=== PATIENT | male | born 1970 | race Caucasian/White ===

== ENCOUNTER 2024-02-05 13:54 | Inpatient (IN) | payer OTHER, SELFPAY ==
[2024-02-05 15:47] VITALS: BMI 25.4
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
--- NOTE | 2024-02-05 16:25 | P.CONHOSP_ITS ---
History of Present Illness Data of Consult Service Date: 02/05/24 Primary Care Provider: Can Ladd MD HPI Reason for consult: Admission H&P Pt is a 53-year-old male with a PMH significant for?hepatitis-C, anxiety, depression, and schizophrenia who is admitted to psychiatry unit for decompensation with paranoid delusions, command auditory hallucinations, and bizarre behavior in the community. Medical consult for admission H&P. ?Patient seen and evaluated at bedside where he is resting comfortably in bed. Patient denies any significant PMH or any acute medical complaints. No nausea, vomiting, abdominal pain. Denies fever, chills. No shortness a breath or difficulty breathing. Denies chest pain/pressure, palpitations. Denies headache or acute vision changes. Patient's only complaints are about ?the voices? that he is currently hearing. Denies any SI or HI. Review of Systems Review of Systems: Patient has no acute medical complaints at this time [facility] Medical History (Updated 02/05/24 @ 17:21 by GONZALES Christianson) Hepatitis C Social History Household Members: Significant Other and Children Household Members Other:: 5 Housing: House Do you presently have visiting nurse or other home services: Yes (Kaleigh White) Patient Tobacco Use Status: Current everyday Tobacco user Tobacco use type: Cigarette Cigarette Packs Per Day: 1.5 Cigarettes Per Day: 30.0 Years Smoked: 38 Smoked in Last 30 Days: Yes e-Cigarette/Vaping Use: Never Used Patient Interested in Nicotine Replacement: Yes Patient Given Instructions on How to Stop Smoking: Yes Date Education Initiated: 02/05/24 Second Hand Smoke Exposure: No Use of substances other than those prescribed or required for medical reasons: Yes Substance Use Type: Marijuana and Caffiene Substance Use Type Other:: 3 blunts daily, 2-3 c coffee Substance Use Frequency: Daily Last Used Substance: Days (ago) Last Used Substance Other:: 1 week Currently Displaying Signs/Symptoms of Drug Intoxication Withdrawal: No Any prior treatment program specific to substance use: No Have you been hit, kicked, punched, or otherwise hurt by someone within the past year? If so, by whom?: No Do you feel safe in your current relationship?: Yes Is there a partner from a previous relationship who is making you feel unsafe no w?: No Are you made to feel afraid or neglected: No Spiritual Healthcare Practices: none Pentecostalism Healthcare Practices: Yarsanism Cultural Healthcare Practices: none Advance Directives: No Advance Directives Information Provided: Yes Do you have a plan to hurt others: No Plan Recently lost weight without trying: Yes How much weight loss: 2-13 pounds Eating poorly because of decreased appetite: Yes Nutrition screen score: 4 Nutrition Risks: No Nutritional Risk Poor oral hygiene: No Meds Allergies Allergy/AdvReac Type Severity Reaction Status Date / Time Unable to Assess Allergy Verified 02/05/24 14:01 Active Medications: Current Medications Acetaminophen (Acetaminophen 325 Mg Tablet) 650 mg PO Q6H PRN PRN Reason: Headache/Pain Mild Scale (1-3) Al Hydroxide/Mg Hydroxide (Magnesium Hydrox/Alum Hydrox 30 Ml Oral.Susp) 30 ml PO Q6H PRN PRN Reason: Heartburn/Nausea Haloperidol (Haloperidol 5 Mg Tablet) 5 mg PO Q4H PRN PRN Reason: Psychosis Hydroxyzine HCl (Hydroxyzine Hcl 25 Mg Tablet) 25 mg PO Q6H PRN PRN Reason: Anxiety Magnesium Hydroxide (Milk Of Magnesia 30 Ml Oral.Susp) 30 ml PO DAILY PRN PRN Reason: Constipation Nicotine Polacrilex (Nicotine Polacrilex 2 Mg Gum) 4 mg BUCCAL Q2H PRN PRN Reason: Nicotine Cravings Trazodone HCl (Trazodone Hcl 50 Mg Tablet) 50 mg PO BEDTIME MRX1 PRN PRN Reason: Insomnia Physical Exam Vital Signs and Narrative: Vital Signs: BMI result Body Mass Index 25.4 General: AOx3, no acute distress Resp: CTA bilaterally CVS: S1, S2, RRR GI: +BS, NT, no distention Skin: Warm, dry Neuro: Cranial nerves II-XII grossly intact bilaterally. Motor grossly intact bilaterally Extremities: No edema Assessment and Plan (1) Medical clearance for psychiatric admission: Status: Acute Plan Pt is a 53-year-old male with a PMH significant for?hepatitis-C, anxiety, depression, and schizophrenia who is admitted to M3 psychiatry unit for decompensation with paranoid delusions, command auditory hallucinations, and bizarre behavior in the community. Medical consult for admission H&P. Mood disorder Plan as per Psychiatry Patient otherwise has no chronic medical conditions or acute medical complaints. Will sign off for now. Thank you for allowing us to participate in the care of this patient. Please re-consult if any acute issue or need arises.
[2024-02-05] MEDS: hydrOXYzine HCL 25 MG TABLET PO ×2 (16:32→21:42)
[2024-02-05] MEDS: HaloperidoL 5 MG TABLET PO ×2 (16:32→21:41)
[2024-02-05] MEDS: Flu Vacc TS2024-25(6mos up)/PF 0.5 ML SYRINGE IM (16:32)
[2024-02-05] MEDS: Nicotine 21 MG PATCH.TD24 TRANSDERMA (19:18)
[2024-02-05 20:00] VITALS: BP 112/61; PULSE 81; RESP 16; TEMP 36.4; O2SAT 94
[2024-02-05] MEDS: Melatonin 3 MG TABLET 6 MG PO (21:42)
[2024-02-06] MEDS: HaloperidoL 5 MG TABLET PO ×2 (03:28→08:38)
[2024-02-06] MEDS: hydrOXYzine HCL 25 MG TABLET PO ×2 (03:28→08:41)
[2024-02-06 07:44] VITALS: BP 130/69; PULSE 77; RESP 16; TEMP 37.4; O2SAT 98
[2024-02-06 08:00] VITALS: BP 130/69; PULSE 77; RESP 15; TEMP 37.4; O2SAT 98
[2024-02-06] MEDS: Nicotine 21 MG PATCH.TD24 TRANSDERMA (08:37)
[2024-02-06 08:45] LABS: MANUAL DIFF FLAG NO
[2024-02-06 08:52] LABS: Basophils Absolute Auto 0.1 X10*3/uL (0.0-0.2); Basophils Percent Auto 0.8 % (0-2); Eosinophils Percent Auto 0.2 % (0-4); Hematocrit 43.7 % (42.0-52.0); Imm Gran Abs Auto 0.06 X10*3/uL (0.00-0.03); Imm Gran Pct Auto 0.5 % (0.0-0.4); Lymphocytes Absolute Auto 2.1 X10*3/uL (1.2-4.9); Lymphocytes Percent Auto 17.1 % (20-40); Mean Corpuscular HGB Conc 34.3 g/dl (31.0-36.0); Mean Corpuscular Hemoglobin 29.9 pg (27.0-33.0); Mean Corpuscular Volume 87.2 fL (80.0-98.0); Monocytes Absolute Auto 0.6 X10*3/uL (0.1-1.2); Monocytes Percent Auto 5.2 % (2-11); Neutrophils Absolute Auto 9.3 x10*3/uL (2.0-8.3); Neutrophils Percent Auto 76.2 % (45-73); Platelet Count 270 X10*3/uL (160-400); Red Blood Count 5.01 X10*6/uL (4.60-5.80); Red Cell Distribution Width 13.3 % (11.0-16.0); White Blood Count 12.2 X10*3/uL (4.8-10.8)
[2024-02-06 08:56] LABS: Estimated Average Glucose 103 mg/dL; Hemoglobin A1C 127.4013 umol/L; Hemoglobin A1c % 5.2 % (<6.0); Total Hemoglobin (HGBA1C) 3766.6695 umol/L
[2024-02-06 09:11] LABS: Alanine Aminotransferase 16 U/L (0-40); Albumin Level 4.4 g/dL (3.5-5.0); Alkaline Phosphatase 55 U/L (39-117); Anion Gap 13 (12-20); Aspartate Amino Transferase 21 U/L (5-37); Bilirubin Direct 0.3 mg/dL (0.0-0.5); Bilirubin Total 0.9 mg/dL (0.0-1.0); Blood Urea Nitrogen 15 mg/dL (9-16); Calcium 9.7 mg/dL (8.4-10.2); Carbon Dioxide 26 mmol/L (22-29); Chloride 108 mmol/L (96-108); Cholesterol 208 mg/dL (<200); Creatinine Clr Calc Pharmacy 89.6; Estimated Glomerular Filt Rate > 60; Glucose Random 85 mg/dL (60-115); HDL Cholesterol 49 mg/dL (>40); LDL Cholesterol Calculated 144 mg/dL (<100); Potassium 4.2 mmol/L (3.3-5.1); Sodium 143 mmol/L (135-145); Total Protein 6.8 g/dL (6.5-8.0); Triglycerides 75 mg/dL (<150)
[2024-02-06 09:28] LABS: Free T4 (Free Thyroxine) 1.25 ng/dL (0.71-1.85); Thyroid Stimulating Hormone 0.88 uIU/mL (0.32-4.0)
[2024-02-06 09:37] LABS: Folate 7.8 ng/mL (> or = 4.0); Vitamin B12 419 pg/mL (200-900)
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
[2024-02-06] MEDS: Paliperidone ER 3 MG TAB.ER.24 PO (10:32)
[2024-02-06] MEDS: buPROPion HCl XL 150 MG TAB.ER.24H PO (11:25)
[2024-02-06] MEDS: Sertraline HCL 100 MG TABLET PO (11:26)
[2024-02-06] MEDS: hydrOXYzine HCL 50 MG TABLET PO ×2 (14:44→20:55)
[2024-02-06] MEDS: HaloperidoL 5 MG TABLET 10 MG PO ×2 (14:44→20:55)
[2024-02-06 20:00] VITALS: BP 109/68; PULSE 71; RESP 16; TEMP 36.6; O2SAT 96
[2024-02-06] MEDS: Melatonin 3 MG TABLET 6 MG PO (20:55)
[2024-02-07] MEDS: HaloperidoL 5 MG TABLET 10 MG PO ×3 (03:51→20:24)
[2024-02-07] MEDS: hydrOXYzine HCL 50 MG TABLET PO ×3 (03:52→20:24)
[2024-02-07] MEDS: QUEtiapine Fumarate 50 MG TABLET PO (05:57)
[2024-02-07 07:30] VITALS: BP 114/67; PULSE 70; RESP 14; TEMP 36.7; O2SAT 97
--- NOTE | 2024-02-07 07:41 | P.PNPSI_ITS ---
Subjective Subjective Date of Service: 02/07/24 Reason For Visit: Mental health crisis Subjective Notes: Conditional Voluntary Interim History: As per nursing anxious, hearing voices and adherent with medications. Management issues. Sleep is broken. With blurb writer reports things are a little bit better i.e. voices are less intense and less frequent. Attributes this to receiving Haldol. Sleep is problematic and was on trazodone up to 200 mg in the past. No SI or HI. Medication Compliance: Yes Side effects from medications: No Review of Systems Acute medical concerns: No Mental Status Exam Mental Status Exam Narrative: disheveled, adequately dressed. In room in bed. cooperative. speech nml rate, amount, ludness, latency. thoughts linear and logical. affect constricted, hyper-intense, non-labile, anxious. mood a little better. denies SI/SIBI/HI. endorses AH. endorses VH of patterns and black shadows. Diagnostics Vital Signs (24Hr): Vital Signs - 24 hr 02/06/24 07:44 02/06/24 08:00 02/06/24 20:00 Temperature 99.4 F 99.4 F 98 F Pulse Rate 77 77 71 Respiratory Rate 16 15 16 Blood Pressure 130/69 130/69 109/68 Pulse Oximetry 98 98 96 Oxygen Delivery Method Room Air Room Air Room Air 02/06/24 20:00 Temperature 98 F Pulse Rate 71 Respiratory Rate 16 Blood Pressure 109/68 Pulse Oximetry 96 Oxygen Delivery Method Room Air BMI result Body Mass Index 25.4 Labs 02/06/24 08:13 02/06/24 08:09 Labs: Laboratory Results - last 48 hr 02/06/24 02/06/24 08:09 08:13 WBC 12.2 H RBC 5.01 Hgb 15.0 Hct 43.7 MCV 87.2 MCH 29.9 MCHC 34.3 RDW 13.3 Plt Count 270 MPV 10.0 Immature Gran % (Auto) 0.5 H Neut % (Auto) 76.2 H Lymph % (Auto) 17.1 L [place] % (Auto) 5.2 Eos % (Auto) 0.2 Baso % (Auto) 0.8 Lymph # (Auto) 2.1 [place] # (Auto) 0.6 Eos # (Auto) 0.0 Baso # (Auto) 0.1 Abs Immat Gran (auto) 0.06 H Absolute Neuts (auto) 9.3 H Absolute Nucleated RBC 0.000 Nucleated RBC % (auto) 0.0 Sodium 143 Potassium 4.2 Chloride 108 Carbon Dioxide 26 Anion Gap 13 BUN 15 Creatinine 0.87 Estim Creat Clear Calc 89.6 Estimated GFR > 60 Random Glucose 85 Estimat Average Glucose 103 Hemoglobin A1c % 5.2 Calcium 9.7 Total Bilirubin 0.9 Direct Bilirubin 0.3 AST 21 ALT 16 Alkaline Phosphatase 55 Total Protein 6.8 Albumin 4.4 Triglycerides 75 Cholesterol 208 H LDL Cholesterol, Calc 144 H HDL Cholesterol 49 Vitamin B12 419 Folate 7.8 TSH 0.88 Free T4 1.25 Medications Medications Current Medications Acetaminophen (Acetaminophen 325 Mg Tablet) 650 mg PO Q6H PRN PRN Reason: Headache/Pain Mild Scale (1-3) Al Hydroxide/Mg Hydroxide (Magnesium Hydrox/Alum Hydrox 30 Ml Oral.Susp) 30 ml PO Q6H PRN PRN Reason: Heartburn/Nausea Bupropion HCl (Bupropion Hcl Xl 300 Mg Tab.Er.24h) 300 mg PO DAILY REPLACED BY [facility] Haloperidol (Haloperidol 5 Mg Tablet) 10 mg PO Q6H PRN PRN Reason: psychosis Last Admin: 02/07/24 03:51 Dose: 10 mg Hydroxyzine HCl (Hydroxyzine Hcl 50 Mg Tablet) 50 mg PO Q6H PRN PRN Reason: EPS prophylaxis Last Admin: 02/07/24 03:52 Dose: 50 mg Hydroxyzine HCl (Hydroxyzine Hcl 50 Mg Tablet) 50 mg PO Q6H PRN PRN Reason: with haldol for EPS prophy Last Admin: 02/06/24 14:44 Dose: 50 mg Hydroxyzine HCl (Hydroxyzine Hcl 50 Mg Tablet) 50 mg PO Q6H PRN PRN Reason: Anxiety Magnesium Hydroxide (Milk Of Magnesia 30 Ml Oral.Susp) 30 ml PO DAILY PRN PRN Reason: Constipation Melatonin (Melatonin 3 Mg Tablet) 6 mg PO BEDTIME PRN PRN Reason: Insomnia Last Admin: 02/06/24 20:55 Dose: 6 mg Nicotine (Nicotine 21 Mg Patch.Td24) 21 mg TRANSDERMA DAILY REPLACED BY [facility] Last Admin: 02/06/24 08:37 Dose: 21 mg Nicotine Polacrilex (Nicotine Polacrilex 2 Mg Gum) 4 mg BUCCAL Q2H PRN PRN Reason: Nicotine Cravings Paliperidone (Paliperidone Er 3 Mg Tab.Er.24) 3 mg PO Q6H PRN PRN Reason: AH/psychosis Last Admin: 02/06/24 10:32 Dose: 3 mg Paliperidone Palmitate (Paliperidone Palmitate 234 Mg/1.5 Ml Syringe) 234 mg IM ONCE ONE Stop: 02/07/24 09:01 Sertraline HCl (Sertraline Hcl 100 Mg Tablet) 200 mg PO DAILY [facility] Allergies Allergies Allergy/AdvReac Type Severity Reaction Status Date / Time Unable to Assess Allergy Verified 02/05/24 14:01 Assessment & Plan Assessment & Plan (1) Psychotic disorder: Status: Acute Code(s): F29 - Unspecified psychosis not due to a substance or known physiological condition Plan check serum paliperidone level tomorrow morning. give sustenna 234 mg IM once after blood draw, per pt request. haldol PRNs with hydroxyzine for now for breakthrough Sx. 02/07/2024: Start trazodone 100 mg at bedtime for poor sleep. Reason for continued inpatient stay Substantial Risk for: inability to function and rapid decompensation Time Spent With Patient Time: Total time managing care of this patient today ____ minutes.
[2024-02-07 07:55] VITALS: BP 114/67; PULSE 70; RESP 14; TEMP 36.7; O2SAT 97
[2024-02-07] MEDS: Nicotine 21 MG PATCH.TD24 TRANSDERMA (07:56)
[2024-02-07] MEDS: buPROPion HCl XL 300 MG TAB.ER.24H PO (07:57)
[2024-02-07] MEDS: Sertraline HCL 100 MG TABLET 200 MG PO (07:57)
[2024-02-07] MEDS: Paliperidone Palmitate 234 MG/1.5 ML SYRINGE IM (09:16)
[2024-02-07 20:00] VITALS: BP 100/56; PULSE 67; RESP 17; TEMP 36.4; O2SAT 97
[2024-02-07] MEDS: Melatonin 3 MG TABLET 6 MG PO (20:24)
[2024-02-07] MEDS: traZODone HCL 100 MG TABLET PO (23:59)
[2024-02-08] MEDS: hydrOXYzine HCL 50 MG TABLET PO ×3 (03:11→19:40)
[2024-02-08] MEDS: HaloperidoL 5 MG TABLET 10 MG PO ×3 (03:11→19:40)
[2024-02-08] MEDS: Nicotine 21 MG PATCH.TD24 TRANSDERMA (07:53)
[2024-02-08] MEDS: Sertraline HCL 100 MG TABLET 200 MG PO (07:53)
[2024-02-08] MEDS: buPROPion HCl XL 300 MG TAB.ER.24H PO (07:54)
[2024-02-08 07:55] VITALS: BP 111/62; PULSE 76; RESP 16; TEMP 36.8; O2SAT 97
[2024-02-08 08:00] VITALS: BP 111/62; PULSE 76; RESP 16; TEMP 36.8; O2SAT 97
--- NOTE | 2024-02-08 10:17 | HO.PSYCHPN ---
Subjective Subjective Date of Service: 02/08/24 Reason For Visit: Mental health crisis Interim History: Much less anxious. Out of room and attending groups. AH 3 times today- was all day and very distressing so significant improvement. Meds helpful and utilzing prns appropriately. Sleep better with trazodone 100mg. Feeling safe and supported. No SI or HI. Medication Compliance: Yes Side effects from medications: No Attending Groups: Yes Review of Systems Acute medical concerns: No Review of Systems Review of Systems nothing of note Mental Status Exam Mental Status Exam Narrative: Much better self care, adequately dressed. IN day area. Cooperative. speech nml rate, amount, ludness, latency. thoughts linear and logical. affect brighter, hyper-intense, non-labile, anxious. mood better. denies SI/SIBI/HI. endorses AH- much less, non command. Diagnostics Vital Signs (24Hr): Vital Signs - 24 hr 02/07/24 20:00 02/08/24 07:55 02/08/24 08:00 Temperature 97.6 F 98.3 F 98.3 F Pulse Rate 67 76 76 Respiratory Rate 17 16 16 Blood Pressure 100/56 L 111/62 111/62 Pulse Oximetry 97 97 97 Oxygen Delivery Method Room Air Room Air Room Air BMI result Body Mass Index 25.4 Labs 02/06/24 08:13 02/06/24 08:09 Medications Medications Current Medications Acetaminophen (Acetaminophen 325 Mg Tablet) 650 mg PO Q6H PRN PRN Reason: Headache/Pain Mild Scale (1-3) Al Hydroxide/Mg Hydroxide (Magnesium Hydrox/Alum Hydrox 30 Ml Oral.Susp) 30 ml PO Q6H PRN PRN Reason: Heartburn/Nausea Bupropion HCl (Bupropion Hcl Xl 300 Mg Tab.Er.24h) 300 mg PO DAILY [facility] Last Admin: 02/08/24 07:54 Dose: 300 mg Haloperidol (Haloperidol 5 Mg Tablet) 10 mg PO Q6H PRN PRN Reason: psychosis Last Admin: 02/08/24 03:11 Dose: 10 mg Hydroxyzine HCl (Hydroxyzine Hcl 50 Mg Tablet) 50 mg PO Q6H PRN PRN Reason: EPS prophylaxis Last Admin: 02/08/24 03:11 Dose: 50 mg Hydroxyzine HCl (Hydroxyzine Hcl 50 Mg Tablet) 50 mg PO Q6H PRN PRN Reason: with haldol for EPS prophy Last Admin: 02/06/24 14:44 Dose: 50 mg Hydroxyzine HCl (Hydroxyzine Hcl 50 Mg Tablet) 50 mg PO Q6H PRN PRN Reason: Anxiety Magnesium Hydroxide (Milk Of Magnesia 30 Ml Oral.Susp) 30 ml PO DAILY PRN PRN Reason: Constipation Melatonin (Melatonin 3 Mg Tablet) 6 mg PO BEDTIME PRN PRN Reason: Insomnia Last Admin: 02/07/24 20:24 Dose: 6 mg Nicotine (Nicotine 21 Mg Patch.Td24) 21 mg TRANSDERMA DAILY [facility] Last Admin: 02/08/24 07:53 Dose: 21 mg Nicotine Polacrilex (Nicotine Polacrilex 2 Mg Gum) 4 mg BUCCAL Q2H PRN PRN Reason: Nicotine Cravings Paliperidone (Paliperidone Er 3 Mg Tab.Er.24) 3 mg PO Q6H PRN PRN Reason: AH/psychosis Last Admin: 02/06/24 10:32 Dose: 3 mg Sertraline HCl (Sertraline Hcl 100 Mg Tablet) 200 mg PO DAILY [facility] Last Admin: 02/08/24 07:53 Dose: 200 mg Trazodone HCl (Trazodone Hcl 100 Mg Tablet) 100 mg PO BEDTIME [facility] Last Admin: 02/07/24 23:59 Dose: 100 mg Allergies Allergies Allergy/AdvReac Type Severity Reaction Status Date / Time Unable to Assess Allergy Verified 02/05/24 14:01 Assessment & Plan Assessment & Plan (1) Psychotic disorder: Status: Acute Code(s): F29 - Unspecified psychosis not due to a substance or known physiological condition Plan check serum paliperidone level tomorrow morning. give sustenna 234 mg IM once after blood draw, per pt request. haldol PRNs with hydroxyzine for now for breakthrough Sx. 02/07/2024: Start trazodone 100 mg at bedtime for poor sleep. 02/07: no changes Reason for continued inpatient stay Substantial Risk for: inability to function and rapid decompensation Time Spent With Patient Time: Total time managing care of this patient today ____ minutes.
[2024-02-08 19:39] VITALS: BP 111/60; PULSE 70; RESP 17; TEMP 36.6; O2SAT 98
[2024-02-08] MEDS: Melatonin 3 MG TABLET 6 MG PO (19:40)
[2024-02-08] MEDS: traZODone HCL 100 MG TABLET PO (22:54)
[2024-02-09] MEDS: hydrOXYzine HCL 50 MG TABLET PO ×3 (04:50→20:38)
[2024-02-09] MEDS: HaloperidoL 5 MG TABLET 10 MG PO (04:50)
[2024-02-09 08:00] VITALS: BP 107/61; PULSE 71; RESP 14; TEMP 36.9; O2SAT 96
[2024-02-09] MEDS: buPROPion HCl XL 300 MG TAB.ER.24H PO (08:21)
[2024-02-09] MEDS: Sertraline HCL 100 MG TABLET 200 MG PO (08:21)
[2024-02-09] MEDS: Nicotine 21 MG PATCH.TD24 TRANSDERMA (08:23)
[2024-02-09] MEDS: Nicotine Polacrilex 2 MG GUM 4 MG BUCCAL (08:45)
--- NOTE | 2024-02-09 14:24 | P.PNPSI_ITS ---
Subjective Subjective Date of Service: 02/09/24 Reason For Visit: Mental health crisis Interim History: feeling better today than yesterday, AH only once so far whereas had x3 yesterday. planning to DC . per staff, fewer AH. sleeping 8 hours. meds helpful. got invega 234 02/06. Mental Status Exam Mental Status Exam Narrative: adequately dressed and groomed. cooperative. speech nml rate, amount, loudness, latency. thoughts linear and logical. affect constricted, hyper- intense, non-labile. mood improved. no SI/SIBI/HI/VH expressed. endorses AH. Diagnostics Vital Signs (24Hr): Vital Signs - 24 hr 02/08/24 19:39 02/09/24 08:00 Temperature 97.8 F 98.4 F Pulse Rate 70 71 Respiratory Rate 17 14 Blood Pressure 111/60 107/61 Pulse Oximetry 98 96 Oxygen Delivery Method Room Air Room Air BMI result Body Mass Index 25.4 Labs 02/06/24 08:13 02/06/24 08:09 Medications Medications Current Medications Acetaminophen (Acetaminophen 325 Mg Tablet) 650 mg PO Q6H PRN PRN Reason: Headache/Pain Mild Scale (1-3) Al Hydroxide/Mg Hydroxide (Magnesium Hydrox/Alum Hydrox 30 Ml Oral.Susp) 30 ml PO Q6H PRN PRN Reason: Heartburn/Nausea Bupropion HCl (Bupropion Hcl Xl 300 Mg Tab.Er.24h) 300 mg PO DAILY [facility] Last Admin: 02/09/24 08:21 Dose: 300 mg Haloperidol (Haloperidol 5 Mg Tablet) 10 mg PO Q6H PRN PRN Reason: psychosis Last Admin: 02/09/24 04:50 Dose: 10 mg Hydroxyzine HCl (Hydroxyzine Hcl 50 Mg Tablet) 50 mg PO Q6H PRN PRN Reason: EPS prophylaxis Last Admin: 02/09/24 04:50 Dose: 50 mg Hydroxyzine HCl (Hydroxyzine Hcl 50 Mg Tablet) 50 mg PO Q6H PRN PRN Reason: with haldol for EPS prophy Last Admin: 02/06/24 14:44 Dose: 50 mg Hydroxyzine HCl (Hydroxyzine Hcl 50 Mg Tablet) 50 mg PO Q6H PRN PRN Reason: Anxiety Last Admin: 02/09/24 11:05 Dose: 50 mg Magnesium Hydroxide (Milk Of Magnesia 30 Ml Oral.Susp) 30 ml PO DAILY PRN PRN Reason: Constipation Melatonin (Melatonin 3 Mg Tablet) 6 mg PO BEDTIME PRN PRN Reason: Insomnia Last Admin: 02/08/24 19:40 Dose: 6 mg Nicotine (Nicotine 21 Mg Patch.Td24) 21 mg TRANSDERMA DAILY [facility] Last Admin: 02/09/24 08:23 Dose: 21 mg Nicotine Polacrilex (Nicotine Polacrilex 2 Mg Gum) 4 mg BUCCAL Q2H PRN PRN Reason: Nicotine Cravings Last Admin: 02/09/24 08:45 Dose: 4 mg Sertraline HCl (Sertraline Hcl 100 Mg Tablet) 200 mg PO DAILY [facility] Last Admin: 02/09/24 08:21 Dose: 200 mg Trazodone HCl (Trazodone Hcl 100 Mg Tablet) 100 mg PO BEDTIME [facility] Last Admin: 02/08/24 22:54 Dose: 100 mg Allergies Allergies Allergy/AdvReac Type Severity Reaction Status Date / Time Unable to Assess Allergy Verified 02/05/24 14:01 Assessment & Plan Assessment & Plan (1) Psychotic disorder: Status: Acute Code(s): F29 - Unspecified psychosis not due to a substance or known physiological condition Plan 02/05: check serum paliperidone level tomorrow morning. give sustenna 234 mg IM once after blood draw, per pt request. haldol PRNs with hydroxyzine for now for breakthrough Sx. 02/06: Start trazodone 100 mg at bedtime for poor sleep. 02/07: no changes. 02/08: reports improved mood and AH. signed 3-day, up . got sustenna 234 on 02/06. paliperidone level pending. T/C increasing frequency of sustenna dosing. Reason for continued inpatient stay Substantial Risk for: inability to function and rapid decompensation Time Spent With Patient Time: Total time managing care of this patient today __25__ minutes.
[2024-02-09 20:00] VITALS: BP 86/50; PULSE 66; RESP 18; TEMP 36.9; O2SAT 96
[2024-02-09] MEDS: traZODone HCL 100 MG TABLET PO (20:37)
[2024-02-09 20:39] VITALS: BP 126/71; PULSE 72; RESP 18
[2024-02-10] MEDS: hydrOXYzine HCL 50 MG TABLET PO ×3 (02:18→11:10)
[2024-02-10] MEDS: HaloperidoL 5 MG TABLET 10 MG PO (04:53)
--- NOTE | 2024-02-10 04:56 | PC.NURSE ---
Addendum entered by Dannielle Marte RN 02/10/24 06:27: Patient reports that the PRN medications he had are effective; he no longer hears voices. Original Note: Patient came to this telegraphic typewriter mechanic at approximately 0450, requesting Haldol. He stated he is hearing voices, saying my name and telling me to hide in my closet.
[2024-02-10] MEDS: Nicotine 21 MG PATCH.TD24 TRANSDERMA (07:16)
[2024-02-10 08:00] VITALS: BP 104/71; PULSE 77; RESP 18; TEMP 36.5; O2SAT 96
[2024-02-10] MEDS: buPROPion HCl XL 300 MG TAB.ER.24H PO (08:33)
[2024-02-10] MEDS: Sertraline HCL 100 MG TABLET 200 MG PO (08:33)
--- NOTE | 2024-02-10 15:41 | P.PNPSI_ITS ---
Subjective Subjective Date of Service: 02/10/24 Reason For Visit: Mental health crisis Interim History: pleasant, cooperative. c/o AH this morning at 0200. took haldol at 0500, which was somewhat helpful. asking for increase in hydroxyzine to 150 at HS as well as trazodone to 200 at HS. planning to DC . per staff, 3-day up 12/12. taking meds. easily engaged. denies AVH. improved energy, motivation. no SI. PRN at 0500 this morning for AH. Mental Status Exam Mental Status Exam Narrative: adequately dressed and groomed. cooperative. speech nml rate, amount, loudness, latency. thoughts linear and logical. affect full range, hyper- intense, non-labile. mood improved. no SI/SIBI/HI/VH expressed. endorses AH. Diagnostics Vital Signs (24Hr): Vital Signs - 24 hr 02/09/24 20:00 02/09/24 20:39 02/10/24 08:00 Temperature 98.5 F 97.7 F Pulse Rate 66 72 77 Respiratory Rate 18 18 18 Blood Pressure 86/50 L 126/71 104/71 Pulse Oximetry 96 96 Oxygen Delivery Method Room Air Room Air BMI result Body Mass Index 25.4 Labs 02/06/24 08:13 02/06/24 08:09 Medications Medications Current Medications Acetaminophen (Acetaminophen 325 Mg Tablet) 650 mg PO Q6H PRN PRN Reason: Headache/Pain Mild Scale (1-3) Al Hydroxide/Mg Hydroxide (Magnesium Hydrox/Alum Hydrox 30 Ml Oral.Susp) 30 ml PO Q6H PRN PRN Reason: Heartburn/Nausea Bupropion HCl (Bupropion Hcl Xl 300 Mg Tab.Er.24h) 300 mg PO DAILY [facility] Last Admin: 02/10/24 08:33 Dose: 300 mg Haloperidol (Haloperidol 5 Mg Tablet) 10 mg PO Q6H PRN PRN Reason: psychosis Last Admin: 02/10/24 04:53 Dose: 10 mg Hydroxyzine HCl (Hydroxyzine Hcl 50 Mg Tablet) 50 mg PO Q6H PRN PRN Reason: with haldol for EPS prophy Last Admin: 02/10/24 11:10 Dose: 50 mg Hydroxyzine HCl (Hydroxyzine Hcl 50 Mg Tablet) 150 mg PO BEDTIME [facility] Magnesium Hydroxide (Milk Of Magnesia 30 Ml Oral.Susp) 30 ml PO DAILY PRN PRN Reason: Constipation Melatonin (Melatonin 3 Mg Tablet) 6 mg PO BEDTIME PRN PRN Reason: Insomnia Last Admin: 02/08/24 19:40 Dose: 6 mg Nicotine (Nicotine 21 Mg Patch.Td24) 21 mg TRANSDERMA DAILY [facility] Last Admin: 02/10/24 07:16 Dose: 21 mg Nicotine Polacrilex (Nicotine Polacrilex 2 Mg Gum) 4 mg BUCCAL Q2H PRN PRN Reason: Nicotine Cravings Last Admin: 02/09/24 08:45 Dose: 4 mg Sertraline HCl (Sertraline Hcl 100 Mg Tablet) 200 mg PO DAILY [facility] Last Admin: 02/10/24 08:33 Dose: 200 mg Trazodone HCl (Trazodone Hcl 100 Mg Tablet) 200 mg PO BEDTIME [facility] Allergies Allergies Allergy/AdvReac Type Severity Reaction Status Date / Time Unable to Assess Allergy Verified 02/05/24 14:01 Assessment & Plan Assessment & Plan (1) Psychotic disorder: Status: Acute Code(s): F29 - Unspecified psychosis not due to a substance or known physiological condition Plan 02/05: check serum paliperidone level tomorrow morning. give sustenna 234 mg IM once after blood draw, per pt request. haldol PRNs with hydroxyzine for now for breakthrough Sx. 02/06: Start trazodone 100 mg at bedtime for poor sleep. 02/07: no changes. 02/08: reports improved mood and AH. signed 3-day, up . got sustenna 234 on 02/06. paliperidone level pending. T/C increasing frequency of sustenna dosing. 02/09: AH x 1 in the past 24H, as for yesterday. increase atarax to 150 mg at HS, trazodone to 200 mg at HS. planning to discharge , upon expiry of 3-day notice. Reason for continued inpatient stay Substantial Risk for: harm to self and inability to function Time Spent With Patient Time: Total time managing care of this patient today __25__ minutes.
[2024-02-10 20:00] VITALS: BP 105/53; PULSE 70; RESP 14; TEMP 36.7; O2SAT 98
[2024-02-10] MEDS: traZODone HCL 100 MG TABLET 200 MG PO (21:06)
[2024-02-10] MEDS: Melatonin 3 MG TABLET 6 MG PO (21:07)
[2024-02-10] MEDS: hydrOXYzine HCL 50 MG TABLET 150 MG PO (21:08)
[2024-02-11] MEDS: HaloperidoL 5 MG TABLET 10 MG PO ×2 (02:20→08:25)
[2024-02-11] MEDS: hydrOXYzine HCL 50 MG TABLET PO ×2 (02:21→08:27)
[2024-02-11 08:00] VITALS: BP 100/65; PULSE 91; RESP 16; TEMP 36.8; O2SAT 97
[2024-02-11] MEDS: Nicotine 21 MG PATCH.TD24 TRANSDERMA (08:23)
[2024-02-11] MEDS: Sertraline HCL 100 MG TABLET 200 MG PO (08:26)
[2024-02-11] MEDS: buPROPion HCl XL 300 MG TAB.ER.24H PO (08:27)
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
[2024-02-11 20:00] VITALS: RESP 18
[2024-02-11] MEDS: hydrOXYzine HCL 50 MG TABLET 150 MG PO (21:24)
[2024-02-11] MEDS: traZODone HCL 100 MG TABLET 200 MG PO (21:24)
[2024-02-12] MEDS: HaloperidoL 5 MG TABLET 10 MG PO (03:16)
[2024-02-12] MEDS: Melatonin 3 MG TABLET 6 MG PO (03:16)
[2024-02-12] MEDS: hydrOXYzine HCL 50 MG TABLET PO (03:17)
[2024-02-12] MEDS: Nicotine Polacrilex 2 MG GUM 4 MG BUCCAL ×2 (05:51→09:44)
[2024-02-12 07:00] VITALS: BMI 25.7
[2024-02-12 07:47] VITALS: BP 110/71; PULSE 71; RESP 18; TEMP 36.3; O2SAT 97
[2024-02-12 08:00] VITALS: BP 110/71; PULSE 71; RESP 18; TEMP 36.3; O2SAT 97
[2024-02-12] MEDS: Nicotine 21 MG PATCH.TD24 TRANSDERMA (08:34)
[2024-02-12] MEDS: Sertraline HCL 100 MG TABLET 200 MG PO (08:34)
[2024-02-12] MEDS: buPROPion HCl XL 300 MG TAB.ER.24H PO (08:35)
[2024-02-18 11:23] LABS: Paliperidone 1.6 ng/mL (20.0-60.0)
== END 2024-02-12 10:50 | disposition home or self-care (01) | DRG 885 ==
PROVIDERS: Admitting Provider Psychiatry & Neurology Psychiatry; PCP Internal Medicine; Visit Provider Psychiatry & Neurology Psychiatry
DX: F29 Unspecified psychosis not due to a substance or known physiological condition (principal); F17.210 Nicotine dependence, cigarettes, uncomplicated; Z71.6 Tobacco abuse counseling; Z23 Encounter for immunization; Z79.899 Other long term (current) drug therapy
CPT/HCPCS: 36415; 80048; 80061; 80076; 80299; 82607; 82746; 83036; 84439; 84443; 85025; 90656; J2426

== ENCOUNTER → 2024-02-05 13:54 | Outpatient (BNV) | payer OTHER, SELFPAY | PROVIDERS: Admitting Provider Psychiatry & Neurology Psychiatry; PCP Internal Medicine; Visit Provider Student in an Organized Health Care Education/Training Program | DX: Z02.2 Encounter for examination for admission to residential institution (principal) | CPT/HCPCS: 99429 ==

== ENCOUNTER → 2024-02-05 13:54 | Outpatient (BNV) | payer OTHER, SELFPAY | PROVIDERS: Admitting Provider Psychiatry & Neurology Psychiatry; PCP Internal Medicine; Visit Provider Psychiatry & Neurology Psychiatry | DX: F29 Unspecified psychosis not due to a substance or known physiological condition (principal) | CPT/HCPCS: 90792; 99231; 99232 ==